=== PATIENT | male | born 1960 | race African-American/Black ===

== ENCOUNTER 2018-01-13 06:28 | Emergency (ER) | payer OTHER ==
[~2018-01-13] VITALS: Ht 172.7 cm; Wt 59.0 kg
[~2018-01-13 06:28] MED LIST: ANTI-ITCH28 GM TOP; AUGMENTIN 875875 MG PO; CYCLOBENZAPRINE10 M1 PO; FISH OIL500 MG PO; HYDROCORTISO453.6 G1 TOP; IBUPROFEN800 M1 PO; KEFLEX500 MG PO; MASON NATURAL325 MG PO; MEDROL4 M2 PO; PERCOCET 325 MG1 TA2 PO; PERCOCET 5-3251 EACH PO; PROTONIX 20MG T20 MG PO; TRIAMCINOL0.1 %/453 TOP
[2018-01-13 07:11] VITALS: BP 134/85
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
== END 2018-01-13 09:14 ==
LOC: ERH 06:28
DX: T23.201A Burn of second degree of right hand, unspecified site, initial encounter (principal); X08.8XXA Exposure to other specified smoke, fire and flames, initial encounter; Y92.9 Unspecified place or not applicable; Y93.9 Activity, unspecified
CPT/HCPCS: 90471; 90714